=== PATIENT | female | born 1995 | race Caucasian/White ===

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

== ENCOUNTER → 2017-07-08 | Outpatient (CLI) | payer OTHER ==
[2017-07-08 11:07] LABS: BACTERIA, URINE OCC /hpf; BILIRUBIN, URINE NEG (NEG); BLOOD, URINE NEG (NEG); GLUCOSE,URINE NEG (NEG); KETONE, URINE NEG (NEG); MUCUS URINE MANY /lpf (OCC); NITRITE,URINE NEG (NEG); PH, URINE 5.5 (5.0-8.5); SQUAMOUS EPITHELIAL CELL URINE 2 /hpf (0-5); URINE COLOR YELLOW (YELLW/STRAW); URINE LEUKOCYTE ESTERASE NEG (NEG)
[2017-07-08 11:28] LABS: AUTOMATED NEUTROPHIL # 5.2 TH/MM3 (1.8-7.7); BASOPHIL # 0.1 TH/MM3 (0-0.2); BASOPHIL % 0.6 % (0.0-2.0); EOSINOPHIL # 0.5 TH/MM3 (0-0.4); EOSINOPHIL % 5.7 % (0.0-4.0); HEMOGLOBIN 13.2 GM/DL (11.6-15.3); LYMPH % 26.4 % (9.0-44.0); LYMPHOCYTE # 2.3 TH/MM3 (1.0-4.8); MEAN CORPUSCULAR HEMOGLOBIN 31.2 PG (27.0-34.0); MEAN CORPUSCULAR HGB CONC 34.7 % (32.0-36.0); MONO % 7.3 % (0.0-8.0); MONOCYTE # 0.6 TH/MM3 (0-0.9); PLATELET COUNT 268 TH/MM3 (150-450); RED BLOOD COUNT 4.23 MIL/MM3 (4.00-5.30); RED CELL DISTRIBUTION WIDTH 11.7 % (11.6-17.2); WHITE BLOOD COUNT 8.6 TH/MM3 (4.0-11.0)
[2017-07-08 11:44] LABS: ALBUMIN 4.5 GM/DL (3.4-5.0); AST (GOT) 18 U/L (16-38); BICARBONATE 26.9 MEQ/L (21.0-32.0); BLOOD UREA NITROGEN 11 MG/DL (7-18); CALCIUM 8.8 MG/DL (8.5-10.1); CHLORIDE 102 MEQ/L (98-107); GLOMERULAR FILTRATION RATE 129 ML/MIN (>89); GLUCOSE,FASTING 78 MG/DL (74-99); SODIUM (NA) 137 MEQ/L (136-145)
[2017-07-08 11:46] LABS: RHEUMATOID FACTOR SCREEN NEGATIVE (NEGATIVE)
[2017-07-08 12:09] LABS: % SATURATION IRON PROFILE 26.4 % (20-50); ALKALINE PHOSPHATASE 73 U/L (45-117); ALT (GPT) 14 U/L (9-42); C-REACTIVE PROTEIN LESS THAN 0.29 MG/DL (0.00-0.30); FERRITIN 107 NG/ML (8-252); FOLATE 19.2 NG/ML (3.1-17.5); FREE T4 1.36 NG/DL (0.76-1.46); IRON (FE) 85 MCG/DL (50-170); TOTAL BILIRUBIN ADULT 0.5 MG/DL (0.2-1.0); TOTAL IRON BINDING CAPACITY 322 MCG/DL (250-450); TOTAL PROTEIN 8.4 GM/DL (6.4-8.2)
[2017-07-08 12:23] LABS: WESTERGREN SEDIMENTATION RATE 11 mm/hr (0-20)
[2017-07-09 14:52] LABS: ANA SCREEN POS (NEG)
[2017-07-10 23:53] LABS: DS DNA AB(CRITHIDIA) NEGATIVE (NEGATIVE); DS DNA AB(CRITHIDIA)TITER ND (<1:10)
[2017-07-11 03:49] LABS: RHEUMATOID FACTOR 11 IU/mL (<14)
[2017-07-12 07:51] LABS: ANA SER QL POSITIVE (NEGATIVE); SCL-70 AB <1.0 NEG AI (<1.0 NEGATIVE); SM AB <1.0 NEG AI (<1.0 NEGATIVE); SM/RNP AB <1.0 NEG AI (<1.0 NEGATIVE)
[2017-07-12 11:34] LABS: ANA PATTERN DIFFUSE
[2017-07-12 13:52] LABS: ANA IFA PATTERN HOMOGENEOUS
== END ==
LOC: CLAB 08:41
PROVIDERS: ATTEND Pediatrics Pediatric Infectious Diseases
DX: M08.00 Unspecified juvenile rheumatoid arthritis of unspecified site (principal); M65.9 Synovitis and tenosynovitis, unspecified; R76.8 Other specified abnormal immunological findings in serum; M25.50 Pain in unspecified joint; Z79.899 Other long term (current) drug therapy
CPT/HCPCS: 36415; 80053; 81001; 82180; 82607; 82652; 82728; 82746; 83090; 83540; 83550; 84439; 84443; 84590; 84597; 84630; 85025; 85652; 86038; 86039; 86140; 86200; 86235; 86255; 86430; 86431